=== PATIENT | female | born 1940 | race Two or more races ===

== ENCOUNTER 2017-11-09 19:34 | Emergency (ER) | payer OTHER ==
[~2017-11-09] VITALS: Ht 157.5 cm; Wt 54.0 kg
[2017-11-10] VITALS: BP 164/76
[2017-11-10] MEDS ORDERED: TETANUS-DIPTH-ACEL PERTUSSIS 0.5ML SYRG IM ONE
[2017-11-10] MEDS ORDERED: LIDOCAINE W/ EPINEPHRINE 1% 20ML VIAL ID ONE
[2017-11-10] MEDS ORDERED: BACITRACIN TOP OINT 1 UD PKG TOP ONE (01:00)
== END 2017-11-10 01:09 | disposition home or self-care (01) ==
LOC: ER 19:34
DX: S01.111A Laceration without foreign body of right eyelid and periocular area, initial encounter (principal); X58.XXXA Exposure to other specified factors, initial encounter; Y93.89 Activity, other specified; Y92.89 Other specified places as the place of occurrence of the external cause; Y99.8 Other external cause status
CPT/HCPCS: 12013; 70450; 90471; 90715